=== PATIENT | female | born 1940 | race Native Hawaiian/Other Pacific Islander ===

== ENCOUNTER 2019-07-22 15:12 | Outpatient (CLI) | payer OTHER | END 2019-07-22 19:38 | disposition home or self-care (01) | LOC: RAD 15:12 | DX: M25.552 Pain in left hip (principal) ==

== ENCOUNTER 2019-11-23 08:55 | Outpatient (CLI) | payer OTHER | END 2019-11-23 20:08 | disposition home or self-care (01) | LOC: MRI 08:55 | DX: M43.16 Spondylolisthesis, lumbar region (principal) ==

== ENCOUNTER 2021-07-10 10:07 | Outpatient (CLI) | payer OTHER | END 2021-07-10 19:19 | disposition home or self-care (01) | LOC: US 10:07 | PROVIDERS: ATTEND Nurse Practitioner Family | DX: R10.11 Right upper quadrant pain (principal) ==

== ENCOUNTER 2021-07-13 10:17 | Outpatient (CLI) | payer OTHER | END 2021-07-13 18:54 | disposition home or self-care (01) | LOC: CT 10:17 | PROVIDERS: ATTEND Nurse Practitioner Family | DX: R10.84 Generalized abdominal pain (principal) | CPT/HCPCS: 36415; 82565; 84520; Q9963 ==

== ENCOUNTER 2021-07-14 08:29 | Outpatient (CLI) | payer OTHER | END 2021-07-14 18:56 | disposition home or self-care (01) | LOC: NM 08:29 | PROVIDERS: ATTEND Nurse Practitioner Family | DX: K80.20 Calculus of gallbladder without cholecystitis without obstruction (principal) | CPT/HCPCS: A9537 ==

== ENCOUNTER 2021-07-26 07:57 | Emergency (ER) | payer OTHER ==
[~2021-07-26] VITALS: Ht 170.2 cm; Wt 74.4 kg
[2021-07-26 08:00] VITALS: TEMP 97.9
[2021-07-26 08:39] LABS: PLATELET COUNT 235 K/uL (152-353)
[2021-07-26 08:48] LABS: POTASSIUM 4.1 mmol/L (3.6-5.2)
[2021-07-26 09:30] VITALS: BP 140/63
== END 2021-07-26 10:23 | disposition still patient (30) ==
LOC: ED 07:57
PROVIDERS: Emergency Medicine Emergency Medical Services
DX: K81.0 Acute cholecystitis (principal); Z11.52 Encounter for screening for COVID-19
CPT/HCPCS: 80053; 81000; 82150; 83690; 85027; 87635; 96360; 96374; 96375; 99284; J0132; J0690; J1100; J2001; J2270; J2405; J2704; J3475; J3490; U0003

== ENCOUNTER 2022-11-21 10:50 | Outpatient (CLI) | payer OTHER ==
[2022-11-21 11:18] LABS: PLATELET COUNT 218 K/uL (152-353)
[2022-11-21 11:30] LABS: POTASSIUM 4.5 mmol/L (3.6-5.2)
== END 2022-11-21 19:15 | disposition home or self-care (01) ==
LOC: LABW 10:50
PROVIDERS: ATTEND Nurse Practitioner Family
DX: R10.811 Right upper quadrant abdominal tenderness (principal)
CPT/HCPCS: 36415; 80053; 82150; 83690; 85027

== ENCOUNTER 2022-11-21 11:51 | Emergency (ER) | payer OTHER ==
[~2022-11-21] VITALS: Ht 170.2 cm; Wt 77.1 kg
[2022-11-21 12:02] VITALS: BP 148/74; TEMP 97.7
== END 2022-11-21 15:20 | disposition short-term general hospital (02) ==
LOC: ED 11:51
DX: K63.1 Perforation of intestine (nontraumatic) (principal)
CPT/HCPCS: 96361; 96365; 96375; 99284; J2270; J2405; J2543; Q9963